=== PATIENT | female | born 1935 | race Two or more races ===

== ENCOUNTER 2018-09-20 19:17 | Emergency (ER) | payer OTHER ==
[~2018-09-20] VITALS: Ht 157.5 cm; Wt 61.2 kg
[2018-09-20] MEDS ORDERED: METOPROLOL SUCC25 MG (19:36)
[2018-09-20] MEDS ORDERED: SIMVASTATIN10 MG (19:37)
== END 2018-09-20 23:28 | disposition home or self-care (01) ==
LOC: ER 19:17
DX: N20.0 Calculus of kidney (principal); R10.32 Left lower quadrant pain

== ENCOUNTER → 2019-03-29 | Outpatient (CLI) | payer OTHER ==
[~2019-03-29] MED LIST: METOPROLOL SUCC25 MG; SIMVASTATIN10 MG
== END | disposition home or self-care (01) ==
LOC: RAD 11:07
DX: J04.11 Acute tracheitis with obstruction (principal)

== ENCOUNTER 2021-07-17 14:06 | Outpatient (CLI) | payer OTHER | END 2021-07-17 14:07 | disposition home or self-care (01) | LOC: SONOGRAMA 14:06 | PROVIDERS: ATTEND Internal Medicine | DX: I11.9 Hypertensive heart disease without heart failure (principal); H72.821 Total perforations of tympanic membrane, right ear; R73.9 Hyperglycemia, unspecified; E78.1 Pure hyperglyceridemia ==

== ENCOUNTER 2022-01-27 09:29 | Outpatient (CLI) | payer OTHER | END 2022-01-27 09:31 | disposition home or self-care (01) | LOC: SONOGRAMA 09:29 | PROVIDERS: ATTEND Internal Medicine Nephrology | DX: R31.9 Hematuria, unspecified (principal) ==

== ENCOUNTER 2023-09-21 14:47 | Outpatient (CLI) | payer OTHER | END 2023-09-21 14:52 | disposition home or self-care (01) | LOC: RAD 14:47 | PROVIDERS: ATTEND Internal Medicine | DX: J20.8 Acute bronchitis due to other specified organisms (principal) ==